=== PATIENT | female | born 1985 | race African-American/Black ===

== ENCOUNTER → 2016-11-20 | Outpatient (CLI) | payer MEDICAID ==
[~2016-11-20] MED LIST: FERR324T8 PO; OXYC-360 PO; PRENTAB72 PO
== END ==
LOC: HPND 10:11
PROVIDERS: ATTEND Obstetrics & Gynecology
DX: O35.1XX0 Maternal care for (suspected) chromosomal abnormality in fetus, not applicable or unspecified (principal)
CPT/HCPCS: 76811

== ENCOUNTER → 2017-01-01 | Outpatient (CLI) | payer MEDICAID | LOC: CDED 10:45 | PROVIDERS: ATTEND Obstetrics & Gynecology | DX: O24.419 Gestational diabetes mellitus in pregnancy, unspecified control (principal) | CPT/HCPCS: 97802 ==

== ENCOUNTER 2017-02-19 16:07 | Emergency (ER) | payer MEDICAID ==
[~2017-02-19] VITALS: Ht 167.6 cm; Wt 88.0 kg
--- NOTE | 2017-02-19 17:15 | PD ---
HPI Chief Complaint ctx, pelvic pressure Travel History International Travel<30 Days: No Contact w/Intl Traveler<30Days: No Known Affected Area: No History of Present Illness HPI 31-year-old 002, IUP at 35.6 care complicated by A2 gestational diabetes, chronic migraine headaches The patient presents complaining of a 2 hour history of contractions every 4 minutes with associated pelvic pressure. She reports that last night she had the same symptoms with the contractions were every 8 minutes. Last night the symptoms were improved with a hot shower but she has not attempted any treatments today. There are no aggravating or alleviating factors. She reports she drinks a lot of water every day. She denies any vaginal bleeding. She reports a small amount of leaking of fluid after initially arriving here but denies any large gush of fluid. She reports good movements. Weeks Gestation: 35 Para: 2 : 3 History Past Medical History Narrative Medical Chronic migraine headaches Obstetric History Obstetric History 2 full-term Past Surgical History Surgical History: No Previous Surgery Family History Narrative Family History Asthma, DM, HTN Social History Alcohol Use: No Tobacco Use: No Substance Abuse: No Allergies-Medications (Allergen,Severity, Reaction): Coded Allergies: No Known Allergies (Unverified , 08/05/11) Home Meds Reported Medications Oxycodone/Acetaminophen (Percocet) 5 Mg/325 Mg Tab, 1 - 2 TAB PO Q4-6HPRN, #30 FOR PAIN 09/19/11 Ferrous Fumarate (Ferrous Fumarate 324) 324 Mg Tab, 324 MG PO BIDAC, #1 09/17/11 Vit W/ Ferrous Fumara () Tab, 1 PO 09/17/11 Review of Systems Except as stated in HPI: all other systems reviewed are Neg Physical Exam Narrative GENERAL: Well-nourished, well-developed patient. SKIN: Warm and dry. HEAD: Normocephalic and atraumatic. EYES: No scleral icterus. No injection or drainage. ENT: No nasal drainage noted. Mucous membranes pink. Airway patent. NECK: Supple, trachea midline. No JVD. CARDIOVASCULAR: Regular rate and rhythm without murmurs, gallops, or rubs. RESPIRATORY: Breath sounds equal bilaterally. No accessory muscle use. BREASTS: Deferred ABDOMEN/GI: Abdomen soft, non-tender, bowel sounds present, no rebound, no guarding Gravid GENITOURINARY: External Genitalia: intact and normal in appearance. Grossly normal BUS glands. Speculum exam revealed physiologic appearing discharge with negative Valsalva and no evidence of rupture of membranes. Amniosure was obtained and was negative. SVE 1/thick/high/posterior. FHT's: heart rate tracing was reviewed with heart rate baseline in the 140s, moderate long-term variability, good accelerations, no decelerations noted. There is an irregular contraction pattern. EXTREMITIES: No cyanosis or edema. BACK: Nontender without obvious deformity. NEUROLOGICAL: Awake and alert. Motor and sensory grossly within normal limits. Five out of 5 muscle strength in all muscle groups. Normal speech. Musculoskeletal: Grossly normal range of motion, gait, muscle strength Psychiatric: Grossly normal memory and affect MDM Plan Assessment/plan: 1. IUP at 35.6 2. contractions and pelvic pressure: No evidence of labor with irregular contractions and cervical exam unchanged from prior exam in the office as per patient report. Cervical exam is 1/thick/high and posterior and unchanged over observation period. Contractions at decreased with by mouth hydration. Encouraged good hydration. Strict labor precautions. 3. UA: 30 mg percent protein, trace ketones. Follow-up with repeat UA in the office. 4. well-being: Reassuring testing with reactive NST and heart rate that is reassuring and appropriate for gestational age. kick counts daily. heart rate tracing and patient results were reviewed with Dr. Montgomery who is present on the unit. 5. A2 gestational diabetes: Patient reports good glucose control with glyburide , her most recent Accu-Chek was 102. Continue ADA diet and medication as per primary OB. 6. History of chronic migraine headaches: No issues today 7. Follow up with primary OB in 2-3 days or sooner if needed Diagnosis Diagnosis: Primary Impression: 35 weeks gestation of Additional Impression: False labor before 37 completed weeks of gestation during in third trimester, antepartum Disposition: 01 DISCHARGE HOME Condition: Reyna You MD Feb 19, 2017 17:15
[2017-02-19 17:55] LABS: BILIRUBIN, URINE NEG (NEG); BLOOD, URINE NEG (NEG); GLUCOSE,URINE 70 mg/dL (NEG); KETONE, URINE TRACE mg/dL (NEG); MUCUS URINE FEW /lpf (OCC); NITRITE,URINE NEG (NEG); SQUAMOUS EPITHELIAL CELL URINE 1 /hpf (0-5); URINE COLOR YELLOW (YELLW/STRAW); URINE LEUKOCYTE ESTERASE NEG (NEG)
== END 2017-02-19 18:50 | disposition home or self-care (01) ==
LOC: HOBED 16:07
DX: O47.03 False labor before 37 completed weeks of gestation, third trimester (principal); Z3A.35 35 weeks gestation of pregnancy; O24.419 Gestational diabetes mellitus in pregnancy, unspecified control; G43.909 Migraine, unspecified, not intractable, without status migrainosus
CPT/HCPCS: 59025; 81001; 84112

== ENCOUNTER 2017-02-23 19:39 | Emergency (ER) | payer MEDICAID ==
--- NOTE | 2017-02-23 20:26 | PD ---
HPI Chief Complaint uterine contractions 35 weeks and 3 days Date Seen: Feb 23, 2017 Time Seen: 20:15 Travel History International Travel<30 Days: No Contact w/Intl Traveler<30Days: No Known Affected Area: No History of Present Illness HPI Pt is a 31 yo at 35 weeks and 3 days. [facility] 03-27-[address] Montgomery. This complicated by gestational diabetes. Pt presents with uterine contractions , every 3-4 minutes. No vaginal bleeding or leaking. Active movements. Weeks Gestation: 35 Para: 2 : 3 History Past Medical History Narrative Medical Migraines Obstetric History Obstetric History 2 prior term deliveries. This complicated by gestational diabetes. well controlled on Glyburide. Past Surgical History Surgical History: No Previous Surgery Family History Family History: Negative Social History Alcohol Use: No Tobacco Use: No Substance Abuse: No Allergies-Medications (Allergen,Severity, Reaction): Coded Allergies: No Known Allergies (Unverified , 08/05/11) Home Meds Reported Medications Oxycodone/Acetaminophen (Percocet) 5 Mg/325 Mg Tab, 1 - 2 TAB PO Q4-6HPRN, #30 FOR PAIN 09/19/11 Ferrous Fumarate (Ferrous Fumarate 324) 324 Mg Tab, 324 MG PO BIDAC, #1 09/17/11 Vit W/ Ferrous Fumara () Tab, 1 PO 09/17/11 Review of Systems Except as stated in HPI: all other systems reviewed are Neg Physical Exam Narrative GENERAL: Well-nourished, well-developed patient. SKIN: Warm and dry. HEAD: Normocephalic and atraumatic. EYES: No scleral icterus. No injection or drainage. ENT: No nasal drainage noted. Mucous membranes pink. Airway patent. NECK: Supple, trachea midline. No JVD. CARDIOVASCULAR: Regular rate and rhythm without murmurs, gallops, or rubs. RESPIRATORY: Breath sounds equal bilaterally. No accessory muscle use. BREASTS: Bilateral exam showed no masses , no retractions, no nipple discharge. ABDOMEN/GI: Abdomen soft, non-tender, bowel sounds present, no rebound, no guarding Gravid to [35] weeks size Fundal Height: [35cm] GENITOURINARY: External Genitalia: intact and normal in appearance BUS glands: [wnl] Cervix: [soft] Dilatation: [1cm] Effacement: [50%] Station: [-3] Presentation: [vertex] Membranes: [intact] Uterine Contractions: [3-4 minutes] FHT's: Category: [1] Baseline: [130s] Reactive: [-] Variability: [moderate] Decels: [none] EXTREMITIES: No cyanosis or edema. BACK: Nontender without obvious deformity. No CVA tenderness. NEUROLOGICAL: Awake and alert. Motor and sensory grossly within normal limits. Five out of 5 muscle strength in all muscle groups. Normal speech. Data Data Vital Signs Reviewed: Yes Orders Orders Vital Signs (Adult) .ON ADMISSION (02/23/17 20:13) ^ Labor Status (02/23/17:) Urinalysis - C+S If Indicated (02/23/17:) ^ Non Stress Test (02/23/17:) ^ Hydration (02/23/17:) MDM Medical Record Reviewed: Yes Plan Pt is a 31 yo at 35 weeks and 3 days. Presents with contractions. Cervix is 1cm dilated/50% effaced. Will recheck in 1 hour after PO hydration and SQ Terbutaline. UA sent. Repeat exam shows no cervical change after more than 1 and 1/2 hours. Remains 1cm/ 50%/-3 Pt is still vinicius about every 4 minutes. declines tocolytic Will DC home with labor precautions.. Diagnosis Diagnosis: Primary Impression: 35 weeks gestation of Additional Impression: contractions Disposition: DISCHARGE HOME Condition: Good Joe Leiva MD Feb 23, 2017 20:26
[2017-02-23] MEDS ORDERED: TERBUTALINE INJ 1 MG/ML AMP SQ ONE (20:30)
[2017-02-23 20:58] LABS: BACTERIA, URINE OCC /hpf; BILIRUBIN, URINE NEG (NEG); BLOOD, URINE NEG (NEG); GLUCOSE,URINE 70 mg/dL (NEG); KETONE, URINE TRACE mg/dL (NEG); MUCUS URINE FEW /lpf (OCC); NITRITE,URINE NEG (NEG); PH, URINE 6.5 (5.0-8.5); SQUAMOUS EPITHELIAL CELL URINE 5 /hpf (0-5); URINE COLOR YELLOW (YELLW/STRAW); URINE LEUKOCYTE ESTERASE SMALL (NEG)
== END 2017-02-23 22:08 | disposition home or self-care (01) ==
LOC: HOBED 19:39
DX: O47.00 False labor before 37 completed weeks of gestation, unspecified trimester (principal); O24.419 Gestational diabetes mellitus in pregnancy, unspecified control; Z3A.35 35 weeks gestation of pregnancy
CPT/HCPCS: 59025; 81001; 82948

== ENCOUNTER 2017-03-06 18:20 | Emergency (ER) | payer MEDICAID ==
--- NOTE | 2017-03-06 20:41 | PD ---
HPI Chief Complaint contractions Date Seen: Mar 06, 2017 Travel History International Travel<30 Days: No Contact w/Intl Traveler<30Days: No History of Present Illness HPI Ms. Castrejon is a [address] Montgomery at 37 weeks GA who presents with complaints of contractions. Patient reports that she began feeling contractions at 2pm; she reports that they have been getting stronger and she currently rates them at 5-6/10 in severity. Patient reports normal movement. Patient does not report any concern for vaginal bleeding or rupture of membranes. No reported headache, vision changes, shortness of breath, chest pain, dysuria, or leg swelling. Patient reports normal course with exception of gestational diabetes controlled with Glyburide. GBS-. Weeks Gestation: 37 Para: 2 : 3 History Past Medical History Narrative Medical gestational diabetes; Glyburide controlled Obstetric History Obstetric History 2 prior full term vaginal deliveries Past Surgical History Surgical History: No Previous Surgery Family History Family History: Negative Social History Alcohol Use: No Tobacco Use: No Substance Abuse: No Allergies-Medications (Allergen,Severity, Reaction): Coded Allergies: No Known Allergies (Unverified , 08/05/11) Home Meds Reported Medications Oxycodone/Acetaminophen (Percocet) 5 Mg/325 Mg Tab, 1 - 2 TAB PO Q4-6HPRN, #30 FOR PAIN 09/19/11 Ferrous Fumarate (Ferrous Fumarate 324) 324 Mg Tab, 324 MG PO BIDAC, #1 09/17/11 Vit W/ Ferrous Fumara () Tab, 1 PO 09/17/11 Review of Systems General / Constitutional: No: Fever Eyes: No: Blurred Vision HENT: No: Headaches Respiratory: No: Short of Breath Gastrointestinal: Abdominal Pain, No: Nausea Genitourinary: No: Urgency, Frequency Skin: No Rash, No Itching Neurologic: No: Weakness, Syncope Psychiatric: No: Anxiety, Depression Physical Exam BP 124/79 HR 108 RR 18 T 98.1 Narrative GENERAL: Well-nourished, well-developed patient. SKIN: Warm and dry. HEAD: Normocephalic and atraumatic. EYES: No scleral icterus. No injection or drainage. ENT: No nasal drainage noted. Mucous membranes pink. Airway patent. CARDIOVASCULAR: Regular rate and rhythm without murmurs. Normal perfusion RESPIRATORY: CTAB; normal rate ABDOMEN/GI: Abdomen soft, non-tender, bowel sounds present, no rebound, no guarding Gravid EXTREMITIES: No cyanosis or edema. NEUROLOGICAL: Awake and alert. Motor and sensory function grossly within normal limits. GENITOURINARY: External Genitalia: intact and normal in appearance Cervix: Dilatation: 2-3cm Effacement: 70% Station: -3 Presentation: V Membranes: Intact Uterine Contractions: q3 -4 min FHT's: Category: 1 Baseline: 130 Reactive: Y Variability: Moderate Decels: None Data Data Vital Signs Reviewed: Yes Group B Strep: Negative MDM Medical Record Reviewed: Yes Narrative Course / MDM Ms. Castrejon is a 31 yo at 37 weeks GA who presents with complaints of contractions. -Cat 1 rhythm -Contractions q 3- q8 min Cervix- 2-3cm dilation, 70% effacement, -3 station -GBS- -GDM; Glyburide controlled Plan: -Continue EFM/CTG -Will check random blood glucose -Will plan for cervical recheck in 1 hr Interval: -Reassuring tracing with accels -Contractions ~q6 min on EFM -Cervix 3 cm dilated, non-effaced on exam, -3 station Updated Plan: -Discussed with patient that due to lack of cervical change, she does not seem to be in active labor at this time. Patient encouraged to rest at home, hydrate , use Tylenol and heating pads PRN for pain control, and to return to OB ED with any increase in pain/frequency in contractions, concern for ROM or vaginal bleeding, concern for movement, or any other concerns Diagnosis Diagnosis: Primary Impression: 37 weeks gestation of Additional Impression: contractions Disposition: 01 DISCHARGE HOME Condition: Stable Patient Instructions: General Instructions, Early Labor Signs (ED), Abdominal Pain in (ED), Movement (ED) Carlos Castro MD, R3 Mar 06, 2017 20:41
[2017-03-07] MEDS ORDERED: Prenatal Vitamin PO (23:21)
[2017-03-07] MEDS ORDERED: GLYB5TAB3 PO (23:21)
== END 2017-03-06 21:32 | disposition home or self-care (01) ==
LOC: HOBED 18:20
DX: O60.03 Preterm labor without delivery, third trimester (principal); O24.419 Gestational diabetes mellitus in pregnancy, unspecified control; Z3A.37 37 weeks gestation of pregnancy
CPT/HCPCS: 82948; 99284

== ENCOUNTER 2017-03-07 20:42 | Inpatient (IN) | payer MEDICAID ==
[~2017-03-07] VITALS: Ht 167.6 cm; Wt 90.7 kg
[2017-03-07] MEDS ORDERED: LACTATED RINGER'S 1000 ML INJ 1,000 ML IV PRN (21:44)
--- NOTE | 2017-03-07 21:44 | PD ---
HPI Chief Complaint 37 weeks and 1 day Ruptured membranes 19:00 Date Seen: Mar 07, 2017 Time Seen: 21:25 Travel History International Travel<30 Days: No Contact w/Intl Traveler<30Days: No Known Affected Area: No History of Present Illness HPI Patient is a 31 yo at 37 weeks and 1 day . [facility] 03-27-2017 by LMP consistent with 12 week ultrasound. care with Dr Montgomery. complicated by gestational diabetes. Well controlled with Glyburide 5mg. Pt reports leaking fluid at 19:00. No vaginal bleeding. Active movements. GBS negative. Weeks Gestation: 37 Para: 2 : 3 Last Menstrual Period: June 20, 2016 History Past Medical History Narrative Medical Migraine headaches Obstetric History Obstetric History x2 prior SVDs Past Surgical History Narrative Surgical Left breast biopsy 09/2016 benign Family History Family History: Negative Social History Alcohol Use: No Tobacco Use: No Substance Abuse: No Allergies-Medications (Allergen,Severity, Reaction): Coded Allergies: No Known Allergies (Unverified , 08/05/11) Home Meds Reported Medications Oxycodone/Acetaminophen (Percocet) 5 Mg/325 Mg Tab, 1 - 2 TAB PO Q4-6HPRN, #30 FOR PAIN 09/19/11 Ferrous Fumarate (Ferrous Fumarate 324) 324 Mg Tab, 324 MG PO BIDAC, #1 09/17/11 Vit W/ Ferrous Fumara () Tab, 1 PO 09/17/11 Review of Systems Except as stated in HPI: all other systems reviewed are Neg Physical Exam Narrative GENERAL: Well-nourished, well-developed patient. SKIN: Warm and dry. HEAD: Normocephalic and atraumatic. EYES: No scleral icterus. No injection or drainage. ENT: No nasal drainage noted. Mucous membranes pink. Airway patent. NECK: Supple, trachea midline. No JVD. CARDIOVASCULAR: Regular rate and rhythm without murmurs, gallops, or rubs. RESPIRATORY: Breath sounds equal bilaterally. No accessory muscle use. BREASTS: Bilateral exam showed no masses , no retractions, no nipple discharge. ABDOMEN/GI: Abdomen soft, non-tender, bowel sounds present, no rebound, no guarding Gravid to [37] weeks size Fundal Height: [38cm] 7and 1/2 lbs by Kristian's GENITOURINARY: External Genitalia: intact and normal in appearance BUS glands: [wnl] grossly ruptured Cervix: [soft] Dilatation: [2-3cm] Effacement: [50%] Station: [-3] Presentation: [vertex] Membranes: [ruptured] Uterine Contractions: [10 minutes] FHT's: Category: [1] Baseline: [130s] Reactive: [-] Variability: [moderate] Decels: [none] EXTREMITIES: No cyanosis or edema. BACK: Nontender without obvious deformity. No CVA tenderness. NEUROLOGICAL: Awake and alert. Motor and sensory grossly within normal limits. Five out of 5 muscle strength in all muscle groups. Normal speech. Data Data Vital Signs Reviewed: Yes Group B Strep: Negative MDM Medical Record Reviewed: Yes Plan 31 yo at 37 weeks and 1 day. SROM at 7pm. GBS negative. Gestational diabetes well controlled on Glyburide. Diagnosis Diagnosis: Primary Impression: with 37 weeks completed gestation Additional Impressions: Rupture, membranes, premature Admitted to labor and delivery Joe Leiva MD Mar 07, 2017 21:44
[2017-03-07] MEDS ORDERED: LIDOCAINE HCL 1% 50 ML VIAL I-DERMAL PRN (21:45)
[2017-03-07] MEDS ORDERED: SODIUM CHLORID 0.9% 500 ML INJ 500 ML IV PRN (21:45)
[2017-03-07] MEDS ORDERED: OXYTOCIN 30 UNITS-500ML PREMIX 500 ML IV PRN (21:45)
[2017-03-07] MEDS ORDERED: CITRIC ACID-SODIUM CITRATE LIQ 30 ML UDC PO SCH (21:45)
[2017-03-07] MEDS ORDERED: OXYTOCIN 30 UNITS-500ML PREMIX 500 ML IV ONE (21:45)
[2017-03-07] MEDS ORDERED: MINERAL OIL 10 ML VIAL TOPICAL PRN (21:45)
[2017-03-07] MEDS ORDERED: ONDANSETRON HCL 4 MG/2 ML VIAL IV PUSH PRN (21:45)
[2017-03-07] MEDS ORDERED: LIDOCAINE HCL 1% 50 ML VIAL INFIL PRN (21:45)
--- NOTE | 2017-03-07 22:02 | HHI.HP ---
HPI Chief Complaint 37 weeks and 1 day Date Seen: Mar 07, 2017 Time Seen: 21:50 Travel History International Travel<30 Days: No Contact w/Intl Traveler<30Days: No Known Affected Area: No History of Present Illness HPI Patient is a 31 yo at 37 weeks and 1 day . [facility] 03-27-2017 by LMP consistent with 12 week ultrasound. care with Dr Montgomery. complicated by gestational diabetes. Well controlled with Glyburide 5mg. Pt reports leaking fluid at 19:00. No vaginal bleeding. Active movements. GBS negative. Weeks Gestation: 37 Para: 2 : 3 Last Menstrual Period: June 20, 2016 History Past Medical History Narrative Medical Migraine headaches Obstetric History Obstetric History x2 prior SVDs, Past Surgical History Narrative Surgical Left breast biopsy, benign 09/2016 Family History Family History: Negative Social History Alcohol Use: No Tobacco Use: No Substance Abuse: No Allergies-Medications (Allergen,Severity, Reaction): Coded Allergies: No Known Allergies (Unverified , 08/05/11) Home Meds Reported Medications Oxycodone/Acetaminophen (Percocet) 5 Mg/325 Mg Tab, 1 - 2 TAB PO Q4-6HPRN, #30 FOR PAIN 09/19/11 Ferrous Fumarate (Ferrous Fumarate 324) 324 Mg Tab, 324 MG PO BIDAC, #1 09/17/11 Vit W/ Ferrous Fumara () Tab, 1 PO 09/17/11 Review of Systems Except as stated in HPI: all other systems reviewed are Neg Physical Exam Narrative GENERAL: Well-nourished, well-developed patient. SKIN: Warm and dry. HEAD: Normocephalic and atraumatic. EYES: No scleral icterus. No injection or drainage. ENT: No nasal drainage noted. Mucous membranes pink. Airway patent. NECK: Supple, trachea midline. No JVD. CARDIOVASCULAR: Regular rate and rhythm without murmurs, gallops, or rubs. RESPIRATORY: Breath sounds equal bilaterally. No accessory muscle use. BREASTS: Bilateral exam showed no masses , no retractions, no nipple discharge. ABDOMEN/GI: Abdomen soft, non-tender, bowel sounds present, no rebound, no guarding Gravid to [37] weeks size Fundal Height: [38]7-1/2 pounds by Kristian's GENITOURINARY: External Genitalia: intact and normal in appearance BUS glands: [wnl] Cervix: [soft] Dilatation: [-2-3cm] Effacement: [50%] Station: [-3] Presentation: [vertex] Membranes: [ruptured] Uterine Contractions: [every 10 minutes] FHT's: Category: [130s] Baseline: [-] Reactive: [-] Variability: [moderate] Decels: [none] EXTREMITIES: No cyanosis or edema. BACK: Nontender without obvious deformity. No CVA tenderness. NEUROLOGICAL: Awake and alert. Motor and sensory grossly within normal limits. Five out of 5 muscle strength in all muscle groups. Normal speech. Caprini VTE Risk Assessment Caprini VTE Risk Assessment: No/Low Risk (score <= 1) Caprini Risk Assessment Model Point Value = 1 Point Value = 2 Point Value = 3 Point Value = 5 Age 41-60 Minor surgery BMI > 25 kg/m2 Swollen legs Varicose veins or History of unexplained or recurrent spontaneous Oral contraceptives or hormone replacement Sepsis (< 1 month) Serious lung disease, including pneumonia (< 1 month) Abnormal pulmonary function Acute myocardial infarction Congestive heart failure (< 1 month) History of inflammatory bowel disease Medical patient at bed rest Age 61-74 Arthroscopic surgery Major open surgery (> 45 min) Laparoscopic surgery (> 45 min) Malignancy Confined to bed (> 72 hours) Immobilizing plaster cast Central venous access Age >= 75 History of VTE Family history of VTE Factor V Leiden Prothrombin [id number] Lupus anticoagulant Anticardiolipin antibodies Elevated serum homocysteine Heparin-induced thrombocytopenia Other congenital or acquired thrombophilia Stroke (< 1 month) Elective arthroplasty Hip, pelvis, or leg fracture Acute spinal cord injury (< 1 month) Prophylaxis Regimen Total Risk Factor Score Risk Level Prophylaxis Regimen 0-1 Low Early ambulation 2 Moderate Order ONE of the following: *Sequential Compression Device (SCD) *Heparin 5000 units SQ BID 3-4 Higher Order ONE of the following medications: *Heparin 5000 units SQ TID *Enoxaparin/Lovenox 40 mg SQ daily (WT < 150 kg, CrCl > 30 mL/min) *Enoxaparin/Lovenox 30 mg SQ daily (WT < 150 kg, CrCl > 10-29 mL/min) *Enoxaparin/Lovenox 30 mg SQ BID (WT < 150 kg, CrCl > 30 mL/min) AND/OR *Sequential Compression Device (SCD) 5 or more Highest Order ONE of the following medications: *Heparin 5000 units SQ TID (Preferred with Epidurals) *Enoxaparin/Lovenox 40 mg SQ daily (WT < 150 kg, CrCl > 30 mL/min) *Enoxaparin/Lovenox 30 mg SQ daily (WT < 150 kg, CrCl > 10-29 mL/min) *Enoxaparin/Lovenox 30 mg SQ BID (WT < 150 kg, CrCl > 30 mL/min) AND *Sequential Compression Device (SCD) Data Data Vital Signs Reviewed: Yes Orders Orders Ob (2e) Additional Admit Info (03/07/17 21:28) Admit To Inpatient (03/07/17 ) Code Status (03/07/17 21:44) Vital Signs (Adult) .Per protocol (03/07/17 21:44) Activity Oob Ad Janna (03/07/17 21:44) Heart (03/07/17 21:44) Amnioinfusion (03/07/17 21:44) Urinary Catheter Management .ONCE (03/07/17 21:44) Diet Liquid (03/08/17 Breakfast) Lactated Ringer's 1000 Ml Inj (Lr 1000 M (03/07/17 21:44) Lactated Ringer's 1000 Ml Inj (Lr 1000 M (03/07/17 21:44) Sodium Chlorid 0.9% 500 Ml Inj (Ns 500 M (03/07/17 21:45) Sodium Chlor 0.9% 1000 Ml Inj (Ns 1000 M (03/07/17 22:04) Lidocaine 1% Inj (50 Ml) (Xylocaine 1% I (03/07/17 21:45) Citric Acid-Sodium Citrate Liq (Bicitra (03/07/17 21:45) Ondansetron Inj (Zofran Inj) (03/07/17 21:45) Fentanyl Inj (Fentanyl Inj) (03/07/17 21:45) Fentanyl Inj (Fentanyl Inj) (03/07/17 21:45) Complete Blood Count With Diff (03/07/17 21:44) Hold Clot (03/07/17 21:44) Abo/Rh Blood Type (03/07/17 21:44) Urinalysis - C+S If Indicated (03/07/17 21:44) Drug Screen, Random Urine (03/07/17 21:44) Resp Oxygen Non Rebreathe Mask (03/07/17 ) ^ Epidural / Intrathecal Infus (03/07/17 21:44) Oxytocin 30 Units-500ml Premix (Pitocin (03/07/17 21:45) Lidocaine 1% Inj (50 Ml) (Xylocaine 1% I (03/07/17 21:45) Light Mineral Oil (Muri-Lube Oil) (03/07/17 21:45) Inpatient Certification (03/07/17 ) Specimen To Be Collected PRN (03/07/17 21:44) Specimen To Be Collected PRN (03/07/17 21:44) Basic Metabolic Panel (Bmp) (03/07/17 21:44) Response To Medication .Post New Med Administration, Reaction (03/07/17 21:44) ^ Discontinue Medication (03/07/17 21:44) Oxytocin 30 Units-500ml Premix (Pitocin (03/07/17 21:45) Group B Strep: Negative Assessment/Plan Assessment and Plan 31 yo at 37 weeks and 1 day. Presents with SROM at term. GBS negative. Well controlled gestational diabetes Discussed with dr Carlton. Will admit to L&D. Joe Leiva MD Mar 07, 2017 22:02
[2017-03-07] MEDS ORDERED: SODIUM CHLOR 0.9% 1000 ML INJ 1,000 ML IV PRN (22:04)
[2017-03-07 22:15] LABS: AUTOMATED NEUTROPHIL # 6.3 TH/MM3 (1.8-7.7); BASOPHIL % 0.5 % (0.0-2.0); EOSINOPHIL # 0.1 TH/MM3 (0-0.4); EOSINOPHIL % 1.3 % (0.0-4.0); HEMATOCRIT 29.1 % (35.0-46.0); HEMOGLOBIN 9.5 GM/DL (11.6-15.3); LYMPH % 15.8 % (9.0-44.0); LYMPHOCYTE # 1.4 TH/MM3 (1.0-4.8); MEAN CELL VOLUME 84.5 FL (80.0-100.0); MEAN CORPUSCULAR HEMOGLOBIN 27.7 PG (27.0-34.0); MEAN CORPUSCULAR HGB CONC 32.7 % (32.0-36.0); MEAN PLATELET VOLUME 8.1 FL (7.0-11.0); MONO % 10.4 % (0.0-8.0); MONOCYTE # 0.9 TH/MM3 (0-0.9); PLATELET COUNT 281 TH/MM3 (150-450); RED BLOOD COUNT 3.44 MIL/MM3 (4.00-5.30); RED CELL DISTRIBUTION WIDTH 16.2 % (11.6-17.2); WHITE BLOOD COUNT 8.7 TH/MM3 (4.0-11.0)
[2017-03-07 22:48] LABS: BACTERIA, URINE RARE /hpf; BILIRUBIN, URINE NEG (NEG); BLOOD, URINE TRACE (NEG); GLUCOSE,URINE NEG (NEG); KETONE, URINE NEG (NEG); NITRITE,URINE NEG (NEG); SQUAMOUS EPITHELIAL CELL URINE 3 /hpf (0-5); URINE COLOR YELLOW (YELLW/STRAW); URINE LEUKOCYTE ESTERASE MOD (NEG)
[2017-03-07] MEDS: LACTATED RINGER'S 1000 ML INJ 1,000 ML IV SCH (23:14)
[2017-03-07] MEDS ORDERED: GLYB5TAB3 PO (23:21)
[2017-03-07] MEDS ORDERED: Prenatal Vitamin PO (23:21)
[2017-03-07 23:41] LABS: BICARBONATE 24.6 MEQ/L (21.0-32.0); CALCIUM 8.7 MG/DL (8.5-10.1); CREATININE 0.64 MG/DL (0.50-1.00)
[2017-03-08] VITALS (74 sets, daily range): BP systolic 103–147; BP diastolic 53–89; PULSE 69–130; RESP 14–20; TEMP 97.9–99.5; O2SAT 97–100
[2017-03-08] MEDS ORDERED: OXYTOCIN 30 UNITS/NS 500ML PREMIX IV PRN (00:30)
[2017-03-08] MEDS ORDERED: fentaNYL 2MCG-BUPIV 0.125% INJ 100 ML ONE (05:07)
[2017-03-08] MEDS ORDERED: ePHEDrine/NS 25 MG/5 ML SYRINGE ONE (05:17)
[2017-03-08] MEDS ORDERED: BUPIVACAINE HCL PF 0.25% 10 ML VIAL ONE (05:17)
[2017-03-08] MEDS ORDERED: NO SYSTEM NARCOTICS PRN (06:15)
[2017-03-08] MEDS ORDERED: ePHEDrine/NS 25 MG/5 ML SYRINGE IV PUSH PRN (06:15)
[2017-03-08] MEDS ORDERED: fentaNYL 2MCG-BUPIV 0.125% 100 ML EPIDURAL SCH (06:15)
[2017-03-08] MEDS ORDERED: DO NOT ADMINISTER ANTICOAGULANTS PRN (06:15)
[2017-03-08] MEDS: LACTATED RINGER'S 1000 ML INJ 1,000 ML IV SCH (06:33)
--- NOTE | 2017-03-08 10:16 | PD.OB.DELI ---
Weeks gestation: 37 Gest age assessed date: Mar 08, 2017 Pt started active labor?: Yes Active labor start date: Mar 07, 2017 Active labor start time: 21:13 Medical induction of labor?: No Artificial rupture of membrane: No Anesthesia: Epidural Episiotomy: None Vaginal Delivery: Normal Presentation: Occiput posterior Nuchal Cord: None Delayed cord clamping (45 sec): Yes : Male Delivery date: Mar 08, 2017 Delivery time: 10:00 One Minute : 9 Five Minute : 9 Placenta: Spontaneous delivery Estimated blood loss: 350cc Additional Information true knot in cord Renu Carlton MD Mar 08, 2017 10:16
[2017-03-08] MEDS ORDERED: WITCH HAZEL 50%/GLYCERIN 12.5% 40 PAD JAR TOPICAL PRN (10:30)
[2017-03-08] MEDS ORDERED: ONDANSETRON ODT 4 MG TAB PO PRN (10:30)
[2017-03-08] MEDS ORDERED: ZOLPIDEM TARTRATE 5 MG TAB PO PRN (10:30)
[2017-03-08] MEDS ORDERED: ACETAMINOPHEN 325 MG TAB PO PRN (10:30)
[2017-03-08] MEDS ORDERED: BENZOCAINE 20% TOPICAL SPRAY 60 ML CAN TOPICAL PRN (10:30)
[2017-03-08] MEDS ORDERED: SODIUM CHLORIDE 0.9% FLUSH 10 ML FLUSH IV FLUSH PRN (10:30)
[2017-03-08] MEDS ORDERED: ALUMINUM/MAGNESIUM/SIMETH 30 ML CUP PO PRN (10:30)
[2017-03-08] MEDS ORDERED: OXYTOCIN 30 UNITS-500ML PREMIX 500 ML IV SCH (11:00)
[2017-03-08] MEDS: IBUPROFEN 800 MG TAB PO PRN ×2 (11:56→20:48)
[2017-03-08] MEDS ORDERED: MEASLES, MUMPS, RUBELLA VACCINE 0.5 ML VIAL SQ ONE (16:00)
[2017-03-08] MEDS ORDERED: DIPHTH/TETANUS/ACEL PERTUSSIS (BOOSTER) 0.5 ML VIAL/PFS IM ONE (16:00)
[2017-03-08] MEDS ORDERED: oxyCODONE/ACETAMINOPHEN 5 MG/325 MG TAB PO PRN ×2 (16:45)
[2017-03-08] MEDS: oxyCODONE/ACETAMINOPHEN 5 MG/325 MG TAB PO PRN ×2 (16:58→20:48)
[2017-03-08] MEDS ORDERED: SODIUM CHLORIDE 0.9% FLUSH 10 ML FLUSH IV FLUSH SCH (21:00)
[2017-03-09] MEDS: oxyCODONE/ACETAMINOPHEN 5 MG/325 MG TAB PO PRN ×4 (03:09→16:58)
[2017-03-09 08:07] VITALS: BP 121/76; PULSE 70; RESP 14; TEMP 98; O2SAT 98
[2017-03-09] MEDS: DOCUSATE SODIUM 50 MG/SENNA 8.6 MG TAB PO PRN (08:15)
--- NOTE | 2017-03-09 09:33 | HHI.OB ---
Subjective Post Day: 1 Remarks still has spinal headache, pt offered blood patch multiple times yesterday, today she is consenting to it Objective Vitals/I&O Vital Signs Date Time Temp Pulse Resp B/P (MAP) Pulse Ox O2 Delivery O2 Flow Rate FiO2 03/09/17 08:07 98.0 70 14 121/76 (91) 98 03/08/17 20:00 98.0 103 18 118/53 (74) 03/08/17 12:45 99.4 16 97 03/08/17 12:45 113 117/69 (85) 03/08/17 12:01 69 142/54 (83) 03/08/17 11:45 18 03/08/17 11:45 88 131/70 (90) 03/08/17 11:31 95 130/60 (83) 03/08/17 11:15 95 129/70 (89) 03/08/17 11:05 18 03/08/17 11:00 97 125/64 (84) 03/08/17 10:45 20 03/08/17 10:45 101 126/72 (90) 03/08/17 10:30 101 135/71 (92) 03/08/17 10:18 101 125/69 (87) 03/08/17 10:15 98.1 03/08/17 10:15 20 03/08/17 10:10 104 100 03/08/17 10:09 109 143/89 (107) 03/08/17 09:45 91 130/76 (94) 03/08/17 09:40 90 03/08/17 09:35 86 Objective Remarks GENERAL: Well-nourished, well-developed patient. CARDIOVASCULAR: Regular rate and rhythm without murmurs, gallops, or rubs. RESPIRATORY: Breath sounds equal bilaterally. No accessory muscle use. ABDOMEN/GI: Abdomen soft, non-tender. Fundus: Firm, non-tender at umbilicus. GENITOURINARY: Light to moderate bleeding. EXTREMITIES: No cyanosis or edema, non-tender, without signs of DVT. Medications and IVs Current Medications Medications (Trade) Dose Ordered Sig/Barbara Route Start Time Stop Time Status Last Admin (NS Flush) 2 ml BID IV FLUSH 03/08/17 21:00 (NS Flush) 2 ml UNSCH PRN IV FLUSH 03/08/17 10:30 (Tylenol) 650 mg Q4H PRN PO 03/08/17 10:30 03/08/17 14:19 (Motrin) 800 mg Q8H PRN PO 03/08/17 10:30 03/08/17 20:48 (Americaine 20% Top Spr) 1 spray Q4H PRN TOPICAL 03/08/17 10:30 03/09/17 08:14 (Tucks Pads) 1 applic QID PRN TOPICAL 03/08/17 10:30 03/09/17 08:14 (Marissa-Colace) 2 tab Q12H PRN PO 03/08/17 10:30 03/09/17 08:15 (Ambien) 5 mg HS PRN PO 03/08/17 10:30 (Mag-Al Plus Susp Liq) 15 ml Q8H PRN PO 03/08/17 10:30 (Zofran Odt) 4 mg Q6H PRN PO 03/08/17 10:30 (Percocet 5-325 Mg) 1 tab Q4H PRN PO 03/08/17 16:45 (Percocet 5-325 Mg) 2 tab Q4H PRN PO 03/08/17 17:00 03/09/17 08:14 Assessment/Plan Assessment and Plan 31 yo at 37 weeks and 1 day. s/p PPD#1, for blood patch today Discharge Planning routine in am Attending Attestation pt seen by Renu Souza MD Mar 09, 2017 09:33
[2017-03-09] MEDS: guaiFENesin/DEXTROMETHORPHAN 200 MG/20 MG/10 ML CUP PO PRN (15:59)
[2017-03-09 16:00] VITALS: TEMP 98.6
[2017-03-09 19:40] VITALS: BP 128/68; PULSE 75; RESP 17; TEMP 97.9; O2SAT 100
[2017-03-10] MEDS: oxyCODONE/ACETAMINOPHEN 5 MG/325 MG TAB PO PRN (00:11)
[2017-03-10] MEDS: guaiFENesin/DEXTROMETHORPHAN 200 MG/20 MG/10 ML CUP PO PRN ×3 (00:11→14:45)
[2017-03-10] MEDS: DOCUSATE SODIUM 50 MG/SENNA 8.6 MG TAB PO PRN (01:23)
[2017-03-10] MEDS ORDERED: IBUP1TAB7 PO (07:14)
--- NOTE | 2017-03-10 07:15 | HHI.DCPOC ---
Discharge Care Plan Diagnosis: (1) (spontaneous vaginal delivery) Your Health Problems Are: Vaginal delivery Report Symptoms to Your Doctor -Temperature above 100.5 degrees -Redness, of incision or excessive or foul smelling drainage -Unusual pain or calf pain -Increased vaginal bleeding -Painful or difficulty urinating -Feelings of extreme sadness or anxiety after 2 weeks Goals to Promote Your Health * To prevent worsening of your condition and complications * To maintain your health at the optimal level Directions to Meet Your Goals Take your medications as prescribed Follow your dietary instruction Follow activity as directed Ensure plenty of rest for recovery Drink fluids for hydration Keep your appointments as scheduled Take your immunizations and boosters as scheduled If your symptoms worsen call your PCP, if no PCP go to Urgent Care Center or Emergency Room Smoking is Dangerous to Your Health. Avoid second hand smoke Call the 24-hour crisis hotline for domestic abuse at Jayleen Montgomery MD Mar 10, 2017 07:14
[2017-03-10 07:50] VITALS: BP 121/78; PULSE 74; RESP 18; TEMP 98
[2017-03-10] MEDS: IBUPROFEN 800 MG TAB PO PRN ×2 (08:01→16:02)
--- NOTE | 2017-03-10 11:17 | HHI.OB ---
Subjective Post Day: 2 Objective Vitals/I&O Vital Signs Date Time Temp Pulse Resp B/P (MAP) Pulse Ox O2 Delivery O2 Flow Rate FiO2 03/10/17 07:50 74 121/78 (92) 03/10/17 07:50 98.0 18 03/09/17 19:40 97.9 75 17 128/68 (88) 100 03/09/17 16:00 98.6 03/09/17 11:29 98.2 Objective Remarks GENERAL: Well-nourished, well-developed patient. CARDIOVASCULAR: Regular rate and rhythm without murmurs, gallops, or rubs. RESPIRATORY: Breath sounds equal bilaterally. No accessory muscle use. ABDOMEN/GI: Abdomen soft, non-tender. Fundus: Firm, non-tender at umbilicus. GENITOURINARY: Light bleeding. EXTREMITIES: No cyanosis or edema, non-tender, without signs of DVT. Medications and IVs Current Medications Medications (Trade) Dose Ordered Sig/Barbara Route Start Time Stop Time Status Last Admin (NS Flush) 2 ml BID IV FLUSH 03/08/17 21:00 (NS Flush) 2 ml UNSCH PRN IV FLUSH 03/08/17 10:30 (Tylenol) 650 mg Q4H PRN PO 03/08/17 10:30 03/08/17 14:19 (Motrin) 800 mg Q8H PRN PO 03/08/17 10:30 03/10/17 08:01 (Americaine 20% Top Spr) 1 spray Q4H PRN TOPICAL 03/08/17 10:30 03/09/17 08:14 (Tucks Pads) 1 applic QID PRN TOPICAL 03/08/17 10:30 03/09/17 08:14 (Marissa-Colace) 2 tab Q12H PRN PO 03/08/17 10:30 03/10/17 01:23 (Ambien) 5 mg HS PRN PO 03/08/17 10:30 (Mag-Al Plus Susp Liq) 15 ml Q8H PRN PO 03/08/17 10:30 (Zofran Odt) 4 mg Q6H PRN PO 03/08/17 10:30 (Percocet 5-325 Mg) 1 tab Q4H PRN PO 03/08/17 16:45 03/10/17 08:01 (Percocet 5-325 Mg) 2 tab Q4H PRN PO 03/08/17 17:00 03/10/17 00:11 (Robitussin Dm 200-20 Mg/10 ml Liq) 10 ml Q4H PRN PO 03/09/17 14:45 03/10/17 08:02 Assessment/Plan Assessment and Plan 31 yo s/p at 37 weeks and 1 day. PPD#2, all symptoms resolved s/p blood patch yesterday d/c to home today w office f/u 6 wks Discharge Planning today Jayleen Montgomery MD Mar 10, 2017 11:17
== END 2017-03-10 18:28 | disposition home or self-care (01) | DRG 775 ==
LOC: HOBED 20:42 → H2EB 21:33 → H1EA 03-08 12:11
PROVIDERS: ADMIT Obstetrics & Gynecology; ATTEND Obstetrics & Gynecology
PROC: 10E0XZZ Delivery of Products of Conception, External Approach (ICD-10-PCS; 2017-03-07)
PROC: 3E0R3GC Introduction of Other Therapeutic Substance into Spinal Canal, Percutaneous Approach (ICD-10-PCS; principal; 2017-03-09)
DX: O24.425 Gestational diabetes mellitus in childbirth, controlled by oral hypoglycemic drugs (principal); O69.2XX0 Labor and delivery complicated by other cord entanglement, with compression, not applicable or unspecified; Z37.0 Single live birth; G97.1 Other reaction to spinal and lumbar puncture; Y84.4 Aspiration of fluid as the cause of abnormal reaction of the patient, or of later complication, without mention of misadventure at the time of the procedure; Z3A.37 37 weeks gestation of pregnancy
CPT/HCPCS: 62273; 80048; 80307; 81001; 82948; 84112; 85025; 86900; 86901; 87086; 90707; 90715; 99284; 99285; J2590; J3010; J7120